=== PATIENT | male | born 1990 | race Caucasian/White ===

== ENCOUNTER 2018-04-02 18:28 | Emergency (ER) | payer OTHER ==
[2018-04-02] MEDS: BACTRIM 160MG/800MG DS TAB PO (19:45)
== END 2018-04-02 19:48 | disposition home or self-care (01) ==
LOC: M ED 18:28
DX: S60.312A Abrasion of left thumb, initial encounter (principal); S60.012A Contusion of left thumb without damage to nail, initial encounter; X58.XXXA Exposure to other specified factors, initial encounter; Y92.89 Other specified places as the place of occurrence of the external cause
CPT/HCPCS: 99284